=== PATIENT | female | born 1980 | race Caucasian/White ===

== ENCOUNTER 2017-03-18 05:20 | Day surgery (SDC) | payer OTHER ==
[2017-03-15 10:38] LABS: HEMATOCRIT 40.2 % (36.0-47.0); HEMOGLOBIN 14.2 g/dL (12.0-15.5); HGB HCT DIFFERENCE 2.4; MEAN CORPUSCULAR HGB CONC 35.2 g/dL (32.0-36.0); MEAN CORPUSCULAR VOLUME 88 fl (80-97); RED BLOOD COUNT 4.58 10^6/uL (3.72-5.28); RED CELL DISTRIBUTION WIDTH 12.5 % (11.5-14.0); WHITE BLOOD COUNT 7.2 10^3/uL (4.0-10.5)
[2017-03-15 10:49] LABS: APPEARANCE,URINE CLEAR; BILIRUBIN,URINE NEGATIVE (NEGATIVE); GLUCOSE, URINE NEGATIVE (NEGATIVE); KETONES,URINE NEGATIVE (NEGATIVE); LEUKOCYTE ESTERASE,URINE NEGATIVE (NEGATIVE); NITRITE,URINE NEGATIVE (NEGATIVE); PROTEIN,URINE NEGATIVE (NEGATIVE); URINE SPECIFIC GRAVITY 1.005; UROBILINOGEN,URINE NEGATIVE mg/dL (<2.0)
[~2017-03-18 05:20] MED LIST: CEFAZOLIN 1 GM/D5W RTU 1 GM/50 ML RTUPB IV PRN; LACTATED RINGERS 1000 ML IV PRN; LIDOCAINE 0.5% INJ-PF (5 MG/ML) 50 ML SDV SUBCUT PRN
[2017-03-18] MEDS ORDERED: LIDOCAINE 1% INJ-PF (10 MG/ML) 30 ML SDV ONE (07:13)
[2017-03-18] MEDS ORDERED: METHYLERGONOVINE MALEATE INJ/PF 0.2 MG/1 ML AMPULE ONE ×2 (07:15→07:57)
[2017-03-18] MEDS ORDERED: FENTANYL CITRATE INJ/PF 250 MCG/5 ML AMPULE ONE (07:32)
[2017-03-18] MEDS ORDERED: PROPOFOL INJ 200 MG/20 ML VIAL IV ONE (07:33)
[2017-03-18] MEDS ORDERED: MIDAZOLAM 2 MG/2 ML INJ ONE (07:33)
[2017-03-18] MEDS ORDERED: KETOROLAC TROMETHAMINE INJ/PF 30 MG/1 ML SDV ONE (08:21)
[2017-03-18] MEDS ORDERED: ACETAMINOPHEN 100 ML IV ONE (08:22)
[2017-03-18] MEDS ORDERED: OXYCODONE HCL IR 5 MG TABLET PO PRN ×2 (08:49)
[2017-03-18] MEDS ORDERED: PROMETHAZINE HCL INJ 25 MG/1 ML VIAL IV PRN (09:00)
[2017-03-18 10:50] VITALS: BP 107/68
[2017-03-18] MEDS ORDERED: LIDOCAINE 2% INJ-PF (20 MG/ML) 10 ML AMPUL ONE (12:09)
[2017-03-18] MEDS ORDERED: METOCLOPRAMIDE HCL INJ/PF 10 MG/2 ML SDV ONE (12:09)
[2017-03-18] MEDS ORDERED: GLYCOPYRROLATE INJ 0.4 MG/2 ML VIAL ONE (12:09)
[2017-03-18] MEDS ORDERED: ONDANSETRON HCL INJ/PF 4 MG/2 ML SDV ONE (12:09)
[2017-03-18] MEDS ORDERED: SUCCINYLCHOLINE CHLORIDE INJ 200 MG/10 ML VIAL ONE (12:09)
--- NOTE | 2017-03-18 13:47 | OPERATIVE REPORT E ---
Operative Report NAME: DANELLE BRO : 1980 AGE: 37Y DATE OF SURGERY: ROOM: PREOPERATIVE DIAGNOSIS: Incomplete . POSTOPERATIVE DIAGNOSIS: Incomplete . OPERATION: Suction D and C. SURGEON: NIECY FELIX M.D. ANESTHESIA: General endotracheal. ESTIMATED BLOOD LOSS: 25 mL. SPECIMEN TO PATH: None. The patient desired to take the products of conception home for burial. FINDINGS: The cervix was partially dilated and contained a gestational sac within the cervix. There were also POCs higher up in the uterine cavity. This was a known twin gestation. DESCRIPTION OF PROCEDURE: After discussing the risks, benefits and alternatives of the procedure and obtaining informed consent, the patient was taken to the operating room where general anesthesia was achieved. She was positioned in the dorsal lithotomy position, prepped and draped in the usual standard fashion. The bladder was drained via in and out catheterization. The tenaculum was placed on the anterior aspect of the cervix. The POCs that were sitting within the cervix were initially removed and placed on Telfa. The cervix was then serially dilated to allow for passage of a #8 curved curette. The suction D and C with #8 curved curette was performed in the standard fashion. A blunt curette was used to assure that remaining products were removed. membranes were noted. After that, suction was placed one more time and no further tissue was removed. The patient was given Methergine 1 amp IM. The tenaculum site was treated with silver nitrate. The uterus was involuted normally and there was scant bleeding at that point. The patient was taken out of dorsal lithotomy, awakened from anesthesia, and to recovery in stable condition. All sponge, needle, lap and instrument counts were correct times 2. DICTATING PHYSICIAN: NIECY FELIX M.D. [id number] PHY#: [id number] ID: [id number] JOB#: [id number] ACCT: [id number] cc:NIECY FELIX M.D. >
== END 2017-03-18 10:40 | disposition home or self-care (01) ==
LOC: OROUT 05:20
PROVIDERS: ATTEND Specialist
PROC: 10D17ZZ Extraction of Products of Conception, Retained, Via Natural or Artificial Opening (ICD-10-PCS; principal; 2017-03-18 07:30)
DX: O02.1 Missed abortion (principal); Z88.5 Allergy status to narcotic agent; Z87.891 Personal history of nicotine dependence
CPT/HCPCS: 86900; 86901; 36415 ×2; 86850; 85027; 81001; 59820; J2250; J0690; J3010; J2210; J1885; J2765; J0330; J2405; J2704; J3490; J0131; 1965